=== PATIENT | male | born 1950 | race Asian ===

== ENCOUNTER 2022-11-29 19:01 | Emergency (ER) | payer OTHER ==
[2022-11-29 19:05] VITALS: BP 165/77; PULSE 79; RESP 18; TEMP 97.4; BMI 21.6
[2022-11-29] MEDS ORDERED: ACETAMINOPHEN 1000 MG/100 ML BAG IVPB ONE (19:30)
[2022-11-29] MEDS ORDERED: ACETAMINOPHEN INJECTION 100 ML IVPB ONE (19:48)
[2022-11-29 20:14] LABS: BASO % 0.8 % (0-2.0); EOS % 3.2 % (0-4.5); HEMATOCRIT 43.6 % (35.4-49); LYMPH % 21.8 % (8-40); MCH 32.3 pg (25.7-33.7); MCHC 34.5 g/dl (32.0-35.9); MEAN CELL VOLUME 93.6 fl (80-96); MEAN PLT VOLUME 8.3 fl (7.5-11.1); MONO % 9.5 % (3.8-10.2); NEUT % 64.7 % (42.8-82.8); PLATELET COUNT 208 10^3/uL (134-434); RBC 4.65 M/mm3 (4.00-5.60); WHITE BLOOD COUNT 6.8 K/mm3 (4.0-10.0)
[2022-11-29 20:36] LABS: ALBUMIN 3.8 g/dl (3.4-5.0); BLOOD UREA NITROGEN 13.4 mg/dL (7-18); CALCIUM 9.1 mg/dL (8.5-10.1)
[2022-11-29 20:39] LABS: CREATININE 0.8 mg/dL (0.55-1.3)
[2022-11-29 20:41] LABS: BILIRUBIN,TOTAL 1.1 mg/dL (0.2-1); TOT PROT 7.8 g/dl (6.4-8.2)
[2022-11-29 23:03] LABS: URINE APPEARANCE CLEAR; URINE BILIRUBIN NEGATIVE (NEGATIVE); URINE COLOR YELLOW; URINE GLUCOSE (UA) NEGATIVE (NEGATIVE); URINE KETONE NEGATIVE (NEGATIVE); URINE LEUK ESTERASE NEGATIVE (NEGATIVE); URINE NITRITE NEGATIVE (NEGATIVE); URINE PROTEIN NEGATIVE (NEGATIVE); URINE UROBILINOGEN 0.2 mg/dL (0.2-1.0)
[2022-11-29] MEDS ORDERED: AMOX TR/POT CLAV 875MG/125MG TABLETS (FP) PO ONE ×2 (23:16)
[2022-11-29] MEDS ORDERED: AMOX TR/POT CLAV 875MG/125MG TABLETS (FP) ONE (23:26)
== END 2022-11-29 23:36 | disposition home or self-care (01) ==
LOC: JER 19:01
PROC: 3E033NZ Introduction of Analgesics, Hypnotics, Sedatives into Peripheral Vein, Percutaneous Approach (ICD-10-PCS; principal; 2022-11-29)
DX: K57.92 Diverticulitis of intestine, part unspecified, without perforation or abscess without bleeding (principal); R10.32 Left lower quadrant pain
CPT/HCPCS: 36415; 74177-TC; 80053; 81003; 83690; 85025; 87086; 99285-25; Q9967

== ENCOUNTER 2024-07-05 13:05 | Emergency (ER) | payer OTHER ==
[2024-07-05 16:11] VITALS: BP 134/73; PULSE 68; RESP 12; TEMP 98.3; BMI 22.5
== END 2024-07-05 18:31 | disposition home or self-care (01) ==
LOC: JER 13:05
DX: R42 Dizziness and giddiness (principal)
CPT/HCPCS: 70551-TC; 72100-TC-FY; 93005; 93010; 99284-25

== ENCOUNTER 2024-07-28 04:02 | Day surgery (SDC) | payer OTHER ==
[2024-07-27 09:35] VITALS: BMI 22.7
[2024-07-28] MEDS ORDERED: MIDAZOLAM HCL 2 MG/2 ML SINGLE DOSE VIAL ONE (14:25)
[2024-07-28] MEDS ORDERED: ONDANSETRON 4 MG/2 ML VIAL ONE (14:25)
[2024-07-28] MEDS ORDERED: PROPOFOL 20 ML ONE (14:30)
[2024-07-28] MEDS ORDERED: ONDANSETRON 4 MG/2 ML VIAL IVPUSH PRN (15:19)
[2024-07-28] MEDS ORDERED: oxyCODONE HCL 5 MG TABLET PO PRN (15:19)
[2024-07-28] MEDS ORDERED: ACETAMINOPHEN 500 MG TABLET (FP) PO PRN (15:19)
[2024-07-28] MEDS ORDERED: LACTATED RINGERS SOLUTION 1,000 ML IV SCH (15:30)
[2024-07-28] MEDS ORDERED: ELECTROLYTE-148 SOLN 1,000 ML IV SCH (15:30)
[2024-07-28 17:42] VITALS: BP 151/72; PULSE 55; RESP 16; TEMP 97.5
== END 2024-07-28 17:00 | disposition home or self-care (01) ==
LOC: JASU-SURG 04:02
PROVIDERS: ATTEND Urology
PROC: 0TF3XZZ Fragmentation in Right Kidney Pelvis, External Approach (ICD-10-PCS; principal; 2024-07-28 12:00)
DX: N20.0 Calculus of kidney (principal)